=== PATIENT | female | born 1955 | race Caucasian/White ===

== ENCOUNTER → 2019-12-18 | Outpatient (CLI) | payer OTHER, SELFPAY | END | disposition home or self-care (01) | LOC: MTDU 17:06 | PROVIDERS: PCP Family Medicine; Referring Provider Nurse Practitioner Family; Visit Provider Nurse Practitioner Family | DX: Z20.828 Contact with and (suspected) exposure to other viral communicable diseases (principal) | CPT/HCPCS: 87635; C9803; U0003 ==

== ENCOUNTER → 2021-02-08 10:14 | Outpatient (CLI) | payer OTHER, SELFPAY | PROVIDERS: PCP Family Medicine; Visit Provider Family Medicine | DX: Z23 Encounter for immunization (principal) | CPT/HCPCS: 0004A; 91300 ==

== ENCOUNTER 2021-03-01 17:39 | Emergency (ER) | payer OTHER, SELFPAY ==
[2021-03-01 17:41] VITALS: BP 136/78; PULSE 92; RESP 16; TEMP 35.6; O2SAT 99; BMI 24.3
[2021-03-01 18:17] VITALS: BP 113/58; PULSE 86; RESP 13; O2SAT 100
[2021-03-01 18:22] LABS: Absolute Lymphocyte Count 1.77 X10^3/uL (0.83-4.51); Absolute Neutrophil Count 2.8 X10^3/uL (2.0-7.7); Basophil# 0.04 X10^3/uL; Basophil% 0.7 % (0-1); Eosinophil# 0.23 X10^3/uL; Hematocrit 37.3 % (37-47); Hemoglobin 11.9 g/dL (12.0-15.0); Lymphocyte # 1.77 X10^3/ul (0.83-4.51); Lymphocyte % 30.8 % (19-41); Mean Corp Hgb Conc 31.9 g/dL (32-36); Mean Corpuscular Hgb 26.7 pg (27.0-32.0); Mean Corpuscular Volume 83.8 fL (81-99); Monocyte# 0.92 X10^3/uL; NRBC Flagged by Analyzer 0 % (0-5); Neutrophil # 2.76 X10^3/uL (2.7-7.7); Neutrophil % 48.2 % (47-70); Platelet Count 346 K/mm3 (150-450); RBC Distribution Width CV 11.8 % (11.6-14.6); RBC Distribution Width SD 35.5 fl (35.1-43.9); Red Blood Count 4.45 M/mm3 (4.2-5.4); White Blood Count 5.7 K/mm3 (4.4-11.0)
--- NOTE | 2021-03-01 18:24 | ED.VIS.CHEST ---
HPI History of Present Illness Chief Complaint: Palpitations Narrative Narrative: 65-year-old female with history of hyperlipidemia presenting for the sensation of palpitations for 2 weeks. She claims she has dyspnea on exertion as well. She recently went on a hike and was having difficulty hiking, and states that even climbing stairs is more difficult for her. She states that she has had all her Covid vaccinations and a booster. Patient is denying any chest pain. She does admit to some shortness of breath. She states she has been tracking her heart rate and her highest heart rate is 100 when she is ambulating. She states her heart rate is normally in the 60s to 70s. She had a normal EKG at her physician's office. Patient's primary care physician sent her to the ED for chest pain work-up. Patient has no history of DVT or PE. She has no known risk factors. Patient also admits to a very mild cough which she calls whimpy. She is not had fever, chills, body aches, change in taste or smell. She was tested for COVID-19 and it was negative. [facility] Medical History Hypercholesteremia Allergy/AdvReac Type Severity Reaction Status Date / Time Okufaqp-PBP-HoM Reductase AdvReac NEEDS Verified 03/01/21 17:45 Inhibitor FOLLOW-UP Social History Smoking Status: Never smoker [facility] ED Constitutional Constitutional ED: Denies chills or fever(s) Eyes Eyes: Denies none or blurry vision ENT ENT ED: Denies rhinorrhea or sore throat Cardiovascular Cardiovascular: Reports palpitations and racing heartbeat Respiratory/Chest Respiratory/Chest: Reports cough, dyspnea and dyspnea on exertion Gastrointestinal Gastrointestinal: Denies abdominal pain, diarrhea, nausea or vomiting Genitourinary Genitourinary ED: Denies dysuria or hematuria Musculoskeletal Musculoskeletal: Denies arthralgias or myalgias Integumentary Denies rash Neurologic Neurologic: Denies headache(s) or weakness Psychiatric Psychiatric: Denies anxiety or depression EXAM Physical Exam Const Vital Signs: 03/01/21 17:41 03/01/21 18:17 03/01/21 20:26 Temperature 96.1 F L Temperature Source Temporal Pulse Rate 92 86 87 Respiratory Rate 16 13 15 Blood Pressure 136/78 H 113/58 L 102/58 L Blood Pressure Mean 97 76 72 Pulse Ox 99 100 98 Oxygen Delivery Method Room Air Room Air Room Air 03/01/21 21:35 Temperature Temperature Source Pulse Rate 86 Respiratory Rate 16 Blood Pressure 120/70 Blood Pressure Mean Pulse Ox 98 Oxygen Delivery Method Positive well nourished General Appearance ED: NAD; Negative for pallor HEENT Reports moist mucous membranes normocephalic and atraumatic Eyes PERRL Resp normal respiratory effort Effort and Inspection: respiratory distress Cardio regular rate and regular rhythm GI normal to inspection, nondistended, normoactive bowel sounds Neuro oriented x3 Sensorium / Orientation: awake and alert Psych mental status grossly normal Skin General Skin Exam: Negative for jaundice or pallor Heart Score History: Slightly/Non-Suspicious ECG: Normal Age: >45 - <65 years Risk Factors: 1 or 2 Risk Factors Troponin: </= Normal Limit Score: 2 MDM MDM MDM Narrative Medical decision making narrative: She went to her PCPs office who did an EKG which on my interpretation shows a normal sinus rhythm with a ventricular rate of 83 bpm without sign of ischemic change or dysrhythmia. Patient refuses another EKG in the emergency room. CBC shows no leukocytosis and hemoglobin factor stable. Renal function and electrolytes are normal. Initial troponin is 12. D-dimer was elevated at 1.02. After her chest x-ray which on my interpretation of no acute cardiopulmonary process she was sent to CT and had a CT of her chest which was also negative for acute findings. Her delta troponin came back at 13 which is not a significant interval change. Patient counseled that I found no acute findings and that she is to follow-up with her primary care doctor for outpatient follow-up. She was given return precautions. Impression: 1. Chest pain 2. Dyspnea on exertion 3. Fatigue Lab Data Labs: Laboratory Results - last 24 hr 03/01/21 03/01/21 03/01/21 18:10 18:10 18:10 WBC 5.7 RBC 4.45 Hgb 11.9 L Hct 37.3 MCV 83.8 MCH 26.7 L MCHC 31.9 L RDW Std Deviation 35.5 RDW Coeff of Ifeoma 11.8 Plt Count 346 MPV 10.0 Immature Gran % (Auto) 0.300 Neut % (Auto) 48.2 Lymph % (Auto) 30.8 [place] % (Auto) 16.0 H Eos % (Auto) 4.0 Baso % (Auto) 0.7 Absolute Neuts (auto) 2.8 Absolute Lymphs (auto) 1.77 Nucleated RBC % 0 D-Dimer Quant (PE/DVT) 1.02 H* Sodium 140 Potassium 4.1 Chloride 104 Carbon Dioxide 28.0 Anion Gap 8 BUN 14 Creatinine 0.67 Estim Creat Clear Calc 89.82 Est GFR (MDRD) Af Amer 115 Est GFR (MDRD) Non-Af 95 BUN/Creatinine Ratio 21.0 H Glucose 102 Calcium 9.5 Troponin I High Sens 12 03/01/21 20:10 WBC RBC Hgb Hct MCV MCH MCHC RDW Std Deviation RDW Coeff of Ifeoma Plt Count MPV Immature Gran % (Auto) Neut % (Auto) Lymph % (Auto) [place] % (Auto) Eos % (Auto) Baso % (Auto) Absolute Neuts (auto) Absolute Lymphs (auto) Nucleated RBC % D-Dimer Quant (PE/DVT) Sodium Potassium Chloride Carbon Dioxide Anion Gap BUN Creatinine Estim Creat Clear Calc Est GFR (MDRD) Af Amer Est GFR (MDRD) Non-Af BUN/Creatinine Ratio Glucose Calcium Troponin I High Sens 13 Radiography Diagnostic Testing: Clinical Impression(s) from Imaging Studies Chest X-Ray 03/01/21 18:40 IMPRESSION: There are no acute findings. Electronically Signed: Houston Daniels MD at 18:59 EST , Service support , Chest CTA 03/01/21 19:00 IMPRESSION: Negative CTA chest. Electronically Signed: Houston Daniels MD at 19:17 EST , Service support , Discharge Plan Triage Chief Complaint: Palpitations ED Provider: Raymond Whalen Dx/Rx/DC Orders Instructions: ED Palpitations Primary Care Provider: Peter Jimenez Referrals: Peter Jimenez MD [Primary Care Provider] - Disposition Disposition: Home, Self Care Discharge Date/Time: 03/01/21 21:35
[2021-03-01 18:36] LABS: Anion Gap 8 (5-15); BUN 14 mg/dL (7-18); Calcium,Total 9.5 mg/dL (8.5-10.1); Chloride 104 mmol/L (98-107); Creatinine, Serum 0.67 mg/dL (0.55-1.02); EST Glomerular Filtration Rate 95 mL/min (>60); Est Glom Filt Rate - Afr Amer 115 mL/min (>60); Estimated Creatinine Clearance 89.82 ml/min; Glucose 102 mg/dL (74-106); Potassium 4.1 mmol/L (3.5-5.1); Sodium Level 140 mmol/L (136-145); Troponin-I HS 12 pg/mL (3.0-54.0)
--- NOTE | 2021-03-01 18:40 | RAD_ITS ---
STUDY: X-RAY CHEST REASON FOR EXAM: Female, 65 years old. CHEST PAIN chest pain TECHNIQUE: XR Chest 1 View COMPARISON: 09/03/2011 FINDINGS: There is no demonstrated pleural abnormality. Normal size heart. Normal mediastinum and antony. Normal visualized pulmonary arteries. Normal visualized aortic arch and descending thoracic aorta. Normal visualized thoracic spine. Normal visualized ribs, clavicles, and shoulders. There is no demonstrated abnormality of the visualized soft tissue structures of the upper abdomen. RAD/Chest 1 View (Portable) IMPRESSION: There are no acute findings. Electronically Signed: Houston Daniels MD at 18:59 EST , Service support ,
[2021-03-01 18:45] LABS: D-Dimer Quantitative (DVT/PE) 1.02 FEU/ug/m (0.27-0.49)
--- NOTE | 2021-03-01 19:00 | CT_ITS ---
EXAM: CT ANGIOGRAPHY CHEST WITHOUT AND WITH INTRAVENOUS CONTRAST CLINICAL INDICATION: palpitations TECHNIQUE: Helically acquired angiography images were obtained of the chest without and with intravenous contrast. This CT exam was performed using one or more of the following dose reduction techniques: automated exposure control, adjustment of the mA and/or kV according to patient size, and/or use of iterative reconstruction technique. This report was created using [employer]-RF[employer] report generation technology. MIP reconstructed images were created and reviewed. CONTRAST: IV 75mL [id number] COMPARISON: None. FINDINGS: PULMONARY ARTERIES: Unremarkable. Normal in caliber. No evidence of pulmonary embolism. AORTA: Unremarkable. Normal in caliber. No evidence of dissection. GREAT VESSELS OF AORTIC ARCH: Unremarkable. Normal in caliber. No evidence of dissection. LUNGS AND PLEURAL SPACES: Unremarkable. No mass. No consolidation or edema. No pleural effusion or thickening. No pneumothorax. HEART: Unremarkable. Heart size is normal. No pericardial effusion. No signs of right heart strain, ratio of right ventricle to left ventricle measures less than 1. MEDIASTINUM: Unremarkable. No mediastinal or hilar adenopathy. Esophagus is unremarkable. No hiatal hernia. THYROID: Unremarkable. No thyroid lesions. BONES/JOINTS: Unremarkable. No suspicious lytic or blastic abnormality. CT/CTA Chest W/WO Contrast IMPRESSION: Negative CTA chest. Electronically Signed: Houston Daniels MD at 19:17 EST , Service support ,
[2021-03-01 20:26] VITALS: BP 102/58; PULSE 87; RESP 15; O2SAT 98
[2021-03-01 21:09] LABS: Troponin-I HS 13 pg/mL (3.0-54.0)
[2021-03-01 21:35] VITALS: BP 120/70; PULSE 86; RESP 16; O2SAT 98
== END 2021-03-01 21:35 | disposition home or self-care (01) ==
PROVIDERS: Emergency Provider Student in an Organized Health Care Education/Training Program; PCP Family Medicine
DX: R07.9 Chest pain, unspecified (principal); R06.00 Dyspnea, unspecified; R53.83 Other fatigue; E78.5 Hyperlipidemia, unspecified
CPT/HCPCS: 71045; 71275; 80048; 84484; 85025; 85379; 99284; Q9967; A4216

== ENCOUNTER → 2021-03-09 07:26 | Outpatient (CLI) | payer OTHER, SELFPAY ==
[2021-03-09 08:33] LABS: CRP, High Sensitivity Cardiac 6.99 mg/L; Ferritin 298 ng/mL (8-252); Iron 53 ug/dL (50-170); Iron Binding Capacity,Total 262 ug/dL (250-450); PERCENT IRON SATURATION 20.2 % (15.0-55.0); Thyroid Stim Hormone (TSH) < 0.01 uIU/mL (0.358-3.74)
[2021-03-09 09:58] LABS: T4 Free Direct 2.18 ng/dL (0.76-1.46); T4 Total, Thyroxin 16.3 ug/dL (4.8-13.9)
[2021-03-09 10:05] LABS: T3 Total - Triiodothyronine 1.94 ng/mL (0.6-1.81)
[2021-03-16 16:09] LABS: Lyme IgG P18 Ab Absent (.); Lyme IgG P23 Ab Absent (.); Lyme IgG P28 Ab Absent (.); Lyme IgG P30 Ab Absent (.); Lyme IgG P39 Ab Absent (.); Lyme IgG P41 Ab Absent (.); Lyme IgG P45 Ab Absent (.); Lyme IgG P58 Ab Absent (.); Lyme IgG P66 Ab Absent (.); Lyme IgG P93 Ab Absent (.); Lyme IgM P23 Ab Absent (.); Lyme IgM P39 Ab Absent (.); Lyme IgM P41 Ab Absent (.)
[2021-03-16 21:40] LABS: Lyme IgG WB Interpretation Negative (.); Lyme IgM WB Interpretation Negative (.)
== END ==
PROVIDERS: PCP Family Medicine; Referring Provider Internal Medicine Cardiovascular Disease; Visit Provider Internal Medicine Cardiovascular Disease
DX: E78.5 Hyperlipidemia, unspecified (principal); R53.1 Weakness; I95.1 Orthostatic hypotension; R00.2 Palpitations
CPT/HCPCS: 36415; 82533; 82728; 83540; 83550; 84436; 84439; 84443; 84480; 86141; 86617

== ENCOUNTER → 2021-03-15 08:42 | Outpatient (CLI) | payer OTHER, SELFPAY ==
--- NOTE | 2021-03-15 08:43 | ECHOD_ITS ---
Reason For Study: dyspnea Procedure This was a 2D Doppler, Color Flow transthoracic echocardiogram. Myocardial strain analysis was performed in this exam to aid in the assessment of cardiac function. Exam performed in department. Left Ventricle Normal LV size. Left ventricular systolic function is lower limits of normal. The estimated ejection fraction is 50 %. Stage 1 diastolic dysfunction. No regional wall motion abnormalities noted. Right Ventricle Normal RV size. Normal systolic function. Atria Normal left atrium. Normal right atrium. Mitral Valve Normal mitral valve. Mild (1+) eccentric mitral valve insufficiency. Tricuspid Valve Normal tricuspid valve. Mild tricuspid valve insufficiency. Pulmonary artery systolic pressure is 26 mmHg. Aortic Valve Normal aortic valve. Trisinus/trileaflet aortic valve. Pulmonic Valve Normal pulmonic valve. Great Vessels Normal aortic root. The pulmonary artery is normal size. Normal inferior vena cava. Pericardium/Pleural No pericardial effusion. MMode/2D Measurements & Calculations LVIDd: 5.2 cm IVSd: 0.70 cm Ao root diam: 2.8 cm LVIDs: 3.8 cm LVPWd: 0.68 cm RVDd: 3.1 cm FS: 26.0 % LAV(MOD-sp4): 53.0 ml LA A4 area: 18.7 cm2 LA dimension(2D): 3.2 cm RA A4 area: 13.9 cm2 Doppler Measurements & Calculations MV E max alfred: 42.2 cm/sec Lat Peak E' Alfred: 4.7 cm/sec Med Peak E' Alfred: 3.6 cm/sec MV A max alfred: 80.0 cm/sec E/E' lat: 9.0 E/E' med: 11.7 MV E/A: 0.53 Ao V2 max: 134.4 cm/sec LV V1 max: 103.5 cm/sec PA V2 max: 69.2 cm/sec Ao max P.2 mmHg LV V1 max P.3 mmHg TR max alfred: 235.4 cm/sec TR max P.6 mmHg ECHO/Echo Complete Interpretation Summary Normal LV size. Left ventricular systolic function is lower limits of normal. The estimated ejection fraction is 50 %. Pulmonary artery systolic pressure is 26 mmHg. Stage 1 diastolic dysfunction. The global longitudinal strain is mildly abnormal. The global longitudinal stra in = -15.8% (abnormal). Ordering Physician: Elmo Diaz Referring Physician: swapnil montague Performed By: Sara Godfrey, CATALINOCS, RVT
== END ==
PROVIDERS: PCP Family Medicine; Referring Provider Internal Medicine Cardiovascular Disease; Visit Provider Internal Medicine Cardiovascular Disease
DX: I95.1 Orthostatic hypotension (principal); R06.00 Dyspnea, unspecified
CPT/HCPCS: 93306

== ENCOUNTER 2021-04-21 15:49 | Outpatient (CLI) | payer OTHER, SELFPAY ==
[2021-04-21 17:12] LABS: Vitamin D,25 Hydroxy 19.2 ng/mL
[2021-04-21 18:24] LABS: Free T3 0.8 pg/mL (2.18-3.98); T4 Free Direct 0.26 ng/dL (0.76-1.46)
[2021-04-25 17:08] LABS: Thyroid Stim Immunoglob <0.10 IU/L (0.00-0.55)
[2021-04-25 20:14] LABS: Thyroid Peroxidase AB 39 IU/mL (0-34)
== END 2021-04-21 23:59 | disposition short-term general hospital (02) ==
LOC: BIMLAB 15:50
PROVIDERS: PCP Family Medicine; Referring Provider Internal Medicine Endocrinology, Diabetes & Metabolism; Visit Provider Internal Medicine Endocrinology, Diabetes & Metabolism
DX: E05.90 Thyrotoxicosis, unspecified without thyrotoxic crisis or storm (principal); E55.9 Vitamin D deficiency, unspecified
CPT/HCPCS: 36415; 82306; 84439; 84443; 84445; 84481; 86376

== ENCOUNTER 2021-05-10 13:00 | Outpatient (CLI) | payer OTHER, SELFPAY ==
[2021-05-10 17:05] LABS: Free T3 0.8 pg/mL (2.18-3.98); T4 Free Direct 0.21 ng/dL (0.76-1.46)
== END 2021-05-10 23:59 | disposition home or self-care (01) ==
LOC: BIMLAB 13:01
PROVIDERS: PCP Family Medicine; Referring Provider Internal Medicine Endocrinology, Diabetes & Metabolism; Visit Provider Internal Medicine Endocrinology, Diabetes & Metabolism
DX: E05.90 Thyrotoxicosis, unspecified without thyrotoxic crisis or storm (principal)
CPT/HCPCS: 36415; 84439; 84443; 84481

== ENCOUNTER 2021-05-23 06:20 | Outpatient (CLI) | payer OTHER, SELFPAY ==
[2021-05-23 08:37] LABS: Cholesterol 360 mg/dL (200); High Density Lipoprotein 54 mg/dL; Triglycerides 160 mg/dL; Very Low Density Lipoprotein 32 mg/dL (5-40)
[2021-05-23 09:04] LABS: Free T3 1.4 pg/mL (2.18-3.98); T4 Free Direct 0.35 ng/dL (0.76-1.46)
== END 2021-05-23 23:59 | disposition home or self-care (01) ==
LOC: LAB 06:23
PROVIDERS: Nurse Practitioner Family; PCP Family Medicine; Referring Provider Internal Medicine Endocrinology, Diabetes & Metabolism; Visit Provider Internal Medicine Endocrinology, Diabetes & Metabolism
DX: E05.90 Thyrotoxicosis, unspecified without thyrotoxic crisis or storm (principal); E78.5 Hyperlipidemia, unspecified
CPT/HCPCS: 36415; 80061; 84439; 84443; 84481

== ENCOUNTER 2021-06-19 08:33 | Outpatient (CLI) | payer OTHER, SELFPAY ==
[2021-06-19 12:23] LABS: Free T3 2.4 pg/mL (2.18-3.98); T4 Free Direct 1.27 ng/dL (0.76-1.46); Thyroid Stim Hormone (TSH) 3.16 uIU/mL (0.358-3.74)
== END 2021-06-19 23:59 | disposition home or self-care (01) ==
LOC: BIMLAB 08:34
PROVIDERS: PCP Family Medicine; Referring Provider Internal Medicine Endocrinology, Diabetes & Metabolism; Visit Provider Internal Medicine Endocrinology, Diabetes & Metabolism
DX: E03.8 Other specified hypothyroidism (principal); E06.3 Autoimmune thyroiditis
CPT/HCPCS: 36415; 84439; 84443; 84481

== ENCOUNTER 2021-07-11 08:15 | Outpatient (CLI) | payer OTHER, SELFPAY ==
[2021-07-11 12:36] LABS: T4 Free Direct 1.38 ng/dL (0.76-1.46); Thyroid Stim Hormone (TSH) 1.44 uIU/mL (0.358-3.74)
== END 2021-07-11 23:59 | disposition home or self-care (01) ==
LOC: BIMLAB 08:15
PROVIDERS: PCP Family Medicine; Referring Provider Internal Medicine Endocrinology, Diabetes & Metabolism; Visit Provider Internal Medicine Endocrinology, Diabetes & Metabolism
DX: E03.8 Other specified hypothyroidism (principal); E06.3 Autoimmune thyroiditis
CPT/HCPCS: 36415; 84439; 84443

== ENCOUNTER → 2021-08-07 | Outpatient (CLI) | payer OTHER, SELFPAY ==
[2021-08-07 08:01] LABS: Cholesterol 263 mg/dL (200); High Density Lipoprotein 53 mg/dL; T4 Free Direct 1.22 ng/dL (0.76-1.46); Thyroid Stim Hormone (TSH) 1.71 uIU/mL (0.358-3.74); Triglycerides 137 mg/dL; Very Low Density Lipoprotein 27 mg/dL (5-40)
== END | disposition home or self-care (01) ==
LOC: LAB 07:06
PROVIDERS: PCP Family Medicine; Referring Provider Internal Medicine Endocrinology, Diabetes & Metabolism; Visit Provider Internal Medicine Endocrinology, Diabetes & Metabolism
DX: E03.8 Other specified hypothyroidism (principal); E06.3 Autoimmune thyroiditis; E78.2 Mixed hyperlipidemia
CPT/HCPCS: 36415; 80061; 84439; 84443

== ENCOUNTER → 2021-09-18 | Outpatient (CLI) | payer OTHER, SELFPAY ==
[2021-09-18 18:05] LABS: Free T3 2.3 pg/mL (2.18-3.98); Thyroid Stim Hormone (TSH) 0.42 uIU/mL (0.358-3.74)
[2021-09-20 11:58] LABS: Thyroid Peroxidase AB 13 IU/mL (0-34)
== END | disposition home or self-care (01) ==
LOC: BIMLAB 16:26
PROVIDERS: PCP Family Medicine; Referring Provider Internal Medicine Endocrinology, Diabetes & Metabolism; Visit Provider Internal Medicine Endocrinology, Diabetes & Metabolism
DX: E03.8 Other specified hypothyroidism (principal); E06.3 Autoimmune thyroiditis
CPT/HCPCS: 36415; 84439; 84443; 84481; 86376

== ENCOUNTER → 2021-11-21 | Outpatient (CLI) | payer OTHER, SELFPAY ==
[2021-11-21 13:11] LABS: T4 Free Direct 1.25 ng/dL (0.76-1.46); Thyroid Stim Hormone (TSH) 0.42 uIU/mL (0.358-3.74)
== END | disposition home or self-care (01) ==
LOC: BIMLAB 08:16
PROVIDERS: Nurse Practitioner Family; PCP Family Medicine; Referring Provider Internal Medicine Endocrinology, Diabetes & Metabolism; Visit Provider Internal Medicine Endocrinology, Diabetes & Metabolism
DX: E03.8 Other specified hypothyroidism (principal); E06.3 Autoimmune thyroiditis
CPT/HCPCS: 36415; 84439; 84443

== ENCOUNTER → 2022-01-29 | Outpatient (CLI) | payer OTHER, SELFPAY ==
--- NOTE | 2022-01-29 13:55 | ECHOD_ITS ---
Reason For Study: Dyspnea/SOB Procedure This was a 2D Doppler, Color Flow transthoracic echocardiogram. Exam performed in department. Left Ventricle Normal LV size. Left ventricular systolic function is normal. The estimated ejection fraction is 55 %. Stage 1 diastolic dysfunction. No regional wall motion abnormalities noted. Right Ventricle Normal RV size. Normal systolic function. Atria Normal left atrium. Normal right atrium. Mitral Valve Normal mitral valve. Mild (1+) eccentric mitral valve insufficiency. Tricuspid Valve Normal tricuspid valve. Aortic Valve Trisinus/trileaflet aortic valve. Pulmonic Valve Normal pulmonic valve. Great Vessels Normal aortic root. The pulmonary artery is normal size. Normal inferior vena cava. Pericardium/Pleural No pericardial effusion. MMode/2D Measurements & Calculations LVIDd: 5.3 cm IVSd: 0.80 cm LA dimension: 3.9 cm LVIDs: 3.2 cm LVPWd: 0.72 cm RVDd: 3.5 cm FS: 40.0 % LAV(MOD-bp): 39.6 ml LA A4 area: 17.1 cm2 RA A4 area: 14.7 cm2 LAV(MOD-bp) Indexed: 20.4 ml/m2 LAV(MOD-sp2): 33.6 ml LAV(MOD-sp4): 42.4 ml Time Measurements MV dec time: 0.43 sec Doppler Measurements & Calculations MV E max alfred: 38.9 cm/sec Lat Peak E' Alfred: 10.0 cm/sec Med Peak E' Alfred: 5.9 cm/sec MV A max alfred: 61.2 cm/sec E/E' lat: 3.9 E/E' med: 6.6 MV E/A: 0.64 MV V2 max: 66.2 cm/sec MV P1/2t max alfred: 42.1 cm/sec Ao V2 max: 123.9 cm/sec MV max P.8 mmHg MV P1/2t: 136.6 msec Ao max P.1 mmHg MV V2 mean: 34.0 cm/sec MV dec slope: 90.2 cm/sec2 MV mean P.54 mmHg MVA(P1/2t): 1.6 cm2 MV V2 VTI: 20.0 cm LV V1 max: 96.1 cm/sec MR max alfred: 567.3 cm/sec PA V2 max: 69.7 cm/sec LV V1 max P.7 mmHg MR max P.7 mmHg PA V2 mean: 55.3 cm/sec TR max alfred: 202.6 cm/sec TR max P.5 mmHg ECHO/Echo Complete Interpretation Summary Normal LV size. Left ventricular systolic function is normal. The estimated ejection fraction is 55 %. Mild (1+) eccentric mitral valve insufficiency. Stage 1 diastolic dysfunction. The global longitudinal strain is normal. The global longitudinal strain = -18. 4 % (normal). Ordering Physician: Nydia Murillo Referring Physician: Peter Jimenez Performed By: Robbie Tinajero RCS
== END | disposition home or self-care (01) ==
LOC: CVS 13:54
PROVIDERS: PCP Family Medicine; Referring Provider Nurse Practitioner Gerontology; Visit Provider Nurse Practitioner Gerontology
DX: R06.02 Shortness of breath (principal); E05.90 Thyrotoxicosis, unspecified without thyrotoxic crisis or storm
CPT/HCPCS: 93306

== ENCOUNTER → 2022-02-14 | Outpatient (CLI) | payer OTHER, SELFPAY ==
[2022-02-14 07:56] LABS: ALB/GLOB Ratio 0.9 RATIO (0.9-2.4); AST(SGOT) 20 U/L (15-37); Alanine Aminotransfer ALT/SGPT 24 U/L (13-56); Albumin, Serum 3.7 g/dL (3.2-5.0); Alkaline Phosphatase 72 U/L (45-117); Anion Gap 5 (5-15); BUN 10 mg/dL (7-18); BUN/Creat Ratio 11.6 RATIO (10-20); Calcium,Total 9.3 mg/dL (8.5-10.1); Chloride 106 mmol/L (98-107); Cholesterol 257 mg/dL (200); Creatinine, Serum 0.86 mg/dL (0.55-1.02); EST Glomerular Filtration Rate 71 mL/min (>60); Est Glom Filt Rate - Afr Amer 85 mL/min (>60); Free T3 3.2 pg/mL (2.18-3.98); Globulin 3.9 g/dL (2.2-4.2); Glucose 94 mg/dL (74-106); High Density Lipoprotein 53 mg/dL; Potassium 4.1 mmol/L (3.5-5.1); Protein, Total 7.6 g/dL (6.4-8.2); Sodium Level 140 mmol/L (136-145); T4 Free Direct 1.19 ng/dL (0.76-1.46); Thyroid Stim Hormone (TSH) 0.09 uIU/mL (0.358-3.74); Triglycerides 121 mg/dL; Very Low Density Lipoprotein 24 mg/dL (5-40)
== END | disposition home or self-care (01) ==
PROVIDERS: PCP Family Medicine; Referring Provider Internal Medicine Endocrinology, Diabetes & Metabolism; Visit Provider Internal Medicine Endocrinology, Diabetes & Metabolism
DX: E78.2 Mixed hyperlipidemia (principal); E03.8 Other specified hypothyroidism; E06.3 Autoimmune thyroiditis
CPT/HCPCS: 36415; 80053; 80061; 84439; 84443; 84481

== ENCOUNTER → 2022-05-03 | Outpatient (CLI) | payer OTHER, SELFPAY ==
[2022-05-03 10:51] LABS: Absolute Lymphocyte Count 2.25 X10^3/uL (0.83-4.51); Absolute Neutrophil Count 3.4 X10^3/uL (2.0-7.7); Basophil% 1.5 % (0-1); Eosinophils% 5.9 % (0-5); Hematocrit 43.4 % (37-47); Lymphocyte # 2.25 X10^3/ul (0.83-4.51); Lymphocyte % 33.2 % (19-41); Mean Corp Hgb Conc 32.3 g/dL (32-36); Mean Corpuscular Hgb 28.8 pg (27.0-32.0); Mean Corpuscular Volume 89.3 fL (81-99); Mean Platelet Vol. 10.4 fl (6.2-12.0); Monocyte# 0.61 X10^3/uL; NRBC Flagged by Analyzer 0 % (0-5); Neutrophil # 3.39 X10^3/uL (2.7-7.7); Neutrophil % 50.1 % (47-70); Platelet Count 306 K/mm3 (150-450); RBC Distribution Width CV 13.1 % (11.6-14.6); RBC Distribution Width SD 42.7 fl (35.1-43.9); Red Blood Count 4.86 M/mm3 (4.2-5.4); White Blood Count 6.8 K/mm3 (4.4-11.0)
[2022-05-03 11:10] LABS: Free T3 2.2 pg/mL (2.18-3.98); T4 Free Direct 1.04 ng/dL (0.76-1.46); Thyroid Stim Hormone (TSH) 1.17 uIU/mL (0.358-3.74)
== END | disposition home or self-care (01) ==
PROVIDERS: Nurse Practitioner Gerontology; PCP Family Medicine; Referring Provider Nurse Practitioner Family; Visit Provider Nurse Practitioner Family
DX: R53.83 Other fatigue (principal); E05.90 Thyrotoxicosis, unspecified without thyrotoxic crisis or storm; E55.9 Vitamin D deficiency, unspecified
CPT/HCPCS: 36415; 82306; 84439; 84443; 84481; 85025

== ENCOUNTER → 2022-07-17 | Outpatient (CLI) | payer OTHER, SELFPAY ==
[2022-07-17 14:19] LABS: Vitamin B12 1033 pg/mL (211-911); Vitamin D,25 Hydroxy 31.9 ng/mL
[2022-07-17 14:24] LABS: T4 Free Direct 1.04 ng/dL (0.76-1.46); Thyroid Stim Hormone (TSH) 0.98 uIU/mL (0.358-3.74)
== END | disposition home or self-care (01) ==
LOC: LAB 13:14
PROVIDERS: PCP Family Medicine; Referring Provider Internal Medicine Endocrinology, Diabetes & Metabolism; Visit Provider Internal Medicine Endocrinology, Diabetes & Metabolism
DX: E03.8 Other specified hypothyroidism (principal); E06.3 Autoimmune thyroiditis; E55.9 Vitamin D deficiency, unspecified
CPT/HCPCS: 36415; 82306; 82607; 84439; 84443